=== PATIENT | female | born 1955 | race Caucasian/White ===

== ENCOUNTER 2020-02-02 12:04 | Observation (INO) | payer MEDICARE, OTHER ==
[~2020-02-02] VITALS: Ht 167.6 cm; Wt 98.0 kg
[2020-02-02 12:30] LABS: BASOPHILS ABSOLUTE AUTO 0.03 K/mm3 (0.00-0.23); BASOPHILS PERCENT AUTO 1 % (0-2); EOSINOPHILS ABSOLUTE AUTO 0.09 K/mm3 (0.00-0.68); EOSINOPHILS PERCENT AUTO 2 % (0-6); Hemoglobin 12.4 g/dL (11.5-16.0); IMMATURE GRAN ABSOLUTE AUTO 0.01 K/mm3 (0.00-0.10); IMMATURE GRAN PERCENT AUTO 0 % (0-1); LYMPHOCYTES ABSOLUTE AUTO 0.97 K/mm3 (0.84-5.20); LYMPHOCYTES PERCENT AUTO 16 % (21-46); MONOCYTES ABSOLUTE AUTO 0.41 K/mm3 (0.16-1.47); MONOCYTES PERCENT AUTO 7 % (4-13); Mean Corpuscular HGB 30.4 pg (26.0-34.0); Mean Corpuscular HGB Conc 33.5 g/dL (31.5-36.5); Mean Corpuscular Volume 91 fL (80-100); Mean Platelet Volume 9.6 fL (9.1-12.4); NEUTROPHILS ABSOLUTE AUTO 4.59 K/mm3 (1.96-9.15); NEUTROPHILS PERCENT AUTO 75 % (41-73); Platelet Count 269 K/mm3 (150-400); RDW Coefficient Variation 15.2 % (11.7-14.2); RDW Standard Deviation 50.2 fL (35.1-46.3); Red Blood Cell Count 4.08 M/mm3 (3.80-5.20)
[2020-02-02 12:56] LABS: Alanine Aminotransfer (ALT/SGP 35 U/L (12-78); Albumin, Blood 3.3 g/dL (3.4-5.0); Albumin/Globulin Ratio 0.8 (0.8-1.8); Alk Phos 100 U/L (50-136); Anion Gap 6 mmol/L (6-16); Aspartate Aminotrans (AST/SGOT 23 U/L (12-37); Bilirubin, Total 0.4 mg/dL (0.1-1.0); Blood Urea Nitrogen 14 mg/dL (8-24); CO2, Blood 26 mmol/L (21-32); Calcium, Blood 9.1 mg/dL (8.5-10.1); Chloride, Blood 109 mmol/L (98-108); Creatinine, Blood 0.48 mg/dL (0.40-1.00); Globulin, Blood 3.9 g/dL (2.2-4.0); Glomerular Filtration Rate >60 (60-); Glucose, Blood 102 mg/dL (70-99); Potassium, Blood 3.9 mmol/L (3.5-5.5); Sodium, Blood 141 mmol/L (136-145); Total Protein, Blood 7.2 g/dL (6.4-8.2); Troponin I <0.015 ng/mL (0.000-0.040)
[2020-02-02] MEDS ORDERED: BUPRENORPHINE HC8 MG SL (14:08)
[2020-02-02] MEDS ORDERED: Atarax10 MG PO (14:09)
[2020-02-02] MEDS ORDERED: PREGABALIN100 MG PO (14:09)
[2020-02-02] MEDS ORDERED: EUTHYROX137 MC1 PO (14:09)
[2020-02-02] MEDS ORDERED: CYCL10 PO (14:09)
[2020-02-02] MEDS ORDERED: HYDHCL25 PO (15:11)
[2020-02-02] MEDS ORDERED: ZOLOFT100 M2 PO (15:12)
[2020-02-02] MEDS ORDERED: PRINIVIL10 MG PO (15:12)
[2020-02-02] MEDS ORDERED: ATOR20 PO (15:13)
[2020-02-02] MEDS ORDERED: HYDCHL12.5 PO (15:13)
[2020-02-02] MEDS ORDERED: ALLEGRA ALLERG180 MG PO (15:14)
[2020-02-02] MEDS ORDERED: PRENATAL TABLE1 EAC2 PO (15:14)
[2020-02-02] MEDS ORDERED: POTA10T PO (15:15)
[2020-02-02] MEDS ORDERED: CYAN500 PO (15:15)
--- NOTE | 2020-02-02 17:06 | NUR ---
Telephone report received from Sunil in ED. Anticipate arrival of pt to ICU 16 shortly.
--- NOTE | 2020-02-02 18:51 | NUR ---
Pt arrived from ED, stood and transferred independently to the bed. Sat on side of bed for several minutes due to pain in back and neck, which she describes as chronic and severe. Also c/o nausea which has been the worst problem she said for the past 2 days. GI cocktail given, followed by a cup of tea which she said helped. Normal sinus rhythm noted on monitor. Respirations even and unlabored. Lung sounds clear. Right breast removal last year, scar well healed. Pt states often has swelling of her right arm due to lymph node removal. Blood pressure noted high upon arrival, after some resolution of nausea and pain it was decreased to what she described as normal for her, 140s/80s. Assisted to the commode and she was able to void. has gone home to get her CPAP machine.
--- NOTE | 2020-02-02 19:38 | NUR ---
CARE ASSUMPTION PT A&O X4. VSS. MONITOR SHOWS NSR, HR 60's. SPO2 > 92% ON RA. PT REPORTS 3/10 CHEST/BACK/NECK PAIN. PT REPORTS PAIN & PREVIOUS NAUSEA "EASED AFTER GI COCKTAIL." WILL CONTINUE TO MONITOR & PROVIDE CARE.
--- NOTE | 2020-02-03 01:02 | NUR ---
PAIN / CALL TO MD HOU IN NEAR TEARS REPORTING INABILITY TO SLEEP D/T INTOLERABLE PAIN. PT REPORTS NECK & BACK PAIN W/ PT REPORT OF "IT FEELS LIKE MY NECK IS TRYING TO LOCK UP." PT REPORTS STIFFNESS W/ TURNING HEAD SIDE TO SIDE, ESPECIALLY TO THE LEFT. PT REPORTS THIS PAIN TO BE CHRONIC & BECOMING HARDER TO DEAL W/ AT HOME. PT REPORTS "I'VE BEEN GETTING TO THE POINT WHERE I JUST CAN'T EVEN MOVE." CALL TO MD LEMONS TO REPORT PT PAIN UNMANAGED W/ CURRENTLY ORDERED MEDICATION. PT REPORTS RECIEVING IV DILAUDID IN ER W/ SOME RELIEF. MD LEMONS W/ NEW ORDER FOR 0.5-1 MG IV DILAUDID Q3P. WILL CONTINUE TO MONITOR & PROVIDE CARE.
--- NOTE | 2020-02-03 04:49 | NUR ---
BIGEMINAL PVC's PT W/ BRIEF RUNS OF BIGEMINAL PVC's. 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
--- NOTE | 2020-02-03 07:30 | NUR ---
ASSUMED CARE: PT RESTING IN BED WITH HEATING PAD BENEATH HER. DENIES CHEST PAIN BUT STATES PAIN IN BACK AND NECK. NSR ON TELE WITH [facility]CS NOTED. AT BEDSIDE. PT STATES GI COCKTAIL AND A CUP OF TEA HELPED WITH PAIN AND NAUSEA YESTERDAY. DENIES ANY TODAY. WILL MEDICATE ABLE.
--- NOTE | 2020-02-03 11:23 | NUR ---
PT IS TEARFUL, C/O CHRONIC BACK PAIN. STATES IT HAS BEEN GETTING WORSE AND WORSE AT HOME. STATES IV DILAUDID DOES NOT HELP. CALL TO DR CALVILLO TO ADDRESS THIS. STATED HE WOULD BE IN ICU SHORTLY
--- NOTE | 2020-02-03 12:00 | NUR ---
DISCUSSED PT'S CHRONIC PAIN WITH DR CALVILLO. NEW ORDERS FOR MEDS. CHANGED TO SURGICAL STATUS. NO FURTHER NEEDS OR CONCERNS.
--- NOTE | 2020-02-03 18:22 | NUR ---
PT AWOKE FROM [facility] THIS AFTERNOON AND ASKED FOR 2 NORCO INSTEAD OF 1 DUE TO THE FIRST ONE ONLY LASTING 2.5 HOURS. 2 PROVIDED. PT STATED HER PAIN IN HER NECK IS 5/10 NOW AND ICE HELPED. CALL TO KAYE HOOD TO GIVE REPORT FOR TRANSFER TO MEDICAL FLOOR. PT'S AWARE OF NEW ROOM NUMBER. PT TRANSFERRED TO [facility] VIA WHEEL CHAIR.
--- NOTE | 2020-02-03 18:37 | NUR ---
REPORT RECIEVED. PT ARRIVE TO APPROX 182. ORIENTED TO /CALL SYSTEM. FLUIDS PROVIDED. SHE STATE ADEQUATE BACK/NECK PAIN RELIEF @ THIS TIME. NO CHEST PAIN, SOB OR N/T. PLEASANT AFFECT, @ BEDSIDE.
--- NOTE | 2020-02-03 21:37 | NUR ---
1945 64 Y/O OBESE FEMALE RESTING COMFORTABLY IN BED WITH SPOUSE WHOM IS AT SIDE AND VERY SUPPORTIVE; PT NOTED TO BE FREQUENTLY ITCHING ARMS, ATARAX 25MG PO GIVEN; PT VOICED SHE HAD SKIN ISSUES FOR LONG TIME; VOICED ALSO LAST CHEMOTHERAPY WAS TWO WEEKS AGO AND THAT ONE THERAPY SESSION IS SCHEDULED AT THIS TIME; NO BP LEFT ARM WITH NOTE LEFT ON WHITE BOARD.
--- NOTE | 2020-02-04 02:54 | NUR ---
SHIFT SUMMARY: 64 Y/O FEMALE RESTED COMFORTABLY ALL SHIFT; PT HAS CHRONIC BACK/NECK PAIN WITH MEDS GIVEN PER EMAR; DENIES NAUSEA OR CHEST PAIN; ALERT AND ORIENTED X 4; BED LOW POSITION WITH CALL LIGHT AT SIDE.
[2020-02-04] MEDS ORDERED: SUCR1 PO (13:51)
[2020-02-04] MEDS ORDERED: OMEP20ER PO (13:52)
--- NOTE | 2020-02-04 16:02 | NUR ---
PT DISCHARGED AT 1440 AOX4. PT TREATED FOR PAIN PER EMAR. PT STANBY TO RESTROOM. CALLED APPROPRIATEY AND WAS PLEASANT WITH CARE. ALL PAPER WORK WAS REVIEWED AND EDUCATIONAL MATERIAL SENT WITH PT. PT WHEELCHAIRED DOWN TO S ENTRANCE BY THIS INTERVENTION TEACHER. NO DISTRESS NOTED.
== END 2020-02-04 14:26 | disposition home or self-care (01) ==
LOC: ER 12:04 → ERHOLD 12:05 → ICUW 17:19 → MEDS 02-03 18:18
PROVIDERS: Emergency Medicine; ADMIT Internal Medicine Endocrinology, Diabetes & Metabolism
DX: R07.89 Other chest pain (principal); K29.00 Acute gastritis without bleeding; I10 Essential (primary) hypertension; I07.1 Rheumatic tricuspid insufficiency; E78.00 Pure hypercholesterolemia, unspecified; E89.0 Postprocedural hypothyroidism; G47.33 Obstructive sleep apnea (adult) (pediatric); G89.4 Chronic pain syndrome; M54.5 Low back pain; J31.0 Chronic rhinitis; L29.9 Pruritus, unspecified; T50.905A Adverse effect of unspecified drugs, medicaments and biological substances, initial encounter; M79.7 Fibromyalgia; E66.9 Obesity, unspecified; Z68.36 Body mass index [BMI] 36.0-36.9, adult; Z92.21 Personal history of antineoplastic chemotherapy; Z85.850 Personal history of malignant neoplasm of thyroid; Z85.3 Personal history of malignant neoplasm of breast; Z79.899 Other long term (current) drug therapy; Z23 Encounter for immunization; Z90.11 Acquired absence of right breast and nipple; Z88.1 Allergy status to other antibiotic agents; Z88.5 Allergy status to narcotic agent; Z88.8 Allergy status to other drugs, medicaments and biological substances
CPT/HCPCS: 36415; 71045; 71260; 80053; 83690; 84484; 85025; 93005; 93010; 96372; 96374-59; 96375-59; 96376; 99285-25; A9270-GY; C9113; G0008; G0378; J1170; J1650; J2405; Q2038; Q9967

== ENCOUNTER 2020-10-02 07:24 | Day surgery (SDC) | payer MEDICARE, OTHER ==
[~2020-10-02] VITALS: Ht 167.6 cm; Wt 100.0 kg
[~2020-10-02 07:24] MED LIST: ALLEGRA ALLERG180 MG PO; ATOR20 PO; Atarax10 MG PO; BUPRENORPHINE HC8 MG SL; CYAN500 PO; CYCL10 PO; EUTHYROX137 MC1 PO; HYDCHL12.5 PO; HYDHCL25 PO; OMEP20ER PO; POTA10T PO; PREGABALIN100 MG PO; PRENATAL TABLE1 EAC2 PO; PRINIVIL10 MG PO; SUCR1 PO; ZOLOFT100 M2 PO
[2020-10-02] MEDS ORDERED: MAGNESIUM CITR125 MG PO (07:49)
--- NOTE | 2020-10-02 08:10 | NUR ---
Ambulatory in Day Surgery History, Chart, Medications and Allergies reviewed before start of procedure. Lungs clear T/O to Auscultation. Pre-Op teaching done. Pt verbalizes understanding.
--- NOTE | 2020-10-02 12:00 | NUR ---
Patient up to Ambulate independently. Gait steady. Discharge instructions reviewed with patient. Patient verbalizes understanding. Copy given to patient to take home. Discharged via wheelchair to private car for ride home.
== END 2020-10-02 23:29 | disposition home or self-care (01) ==
LOC: ORSCMMR 07:24 → ORD 09:00 → ORSCMMR 09:00
PROVIDERS: Surgery
PROC: 0JPT0WZ Removal of Totally Implantable Vascular Access Device from Trunk Subcutaneous Tissue and Fascia, Open Approach (ICD-10-PCS; principal; 2020-10-02 09:00)
DX: Z85.3 Personal history of malignant neoplasm of breast (principal); Z85.850 Personal history of malignant neoplasm of thyroid; I10 Essential (primary) hypertension; E03.9 Hypothyroidism, unspecified; Z87.891 Personal history of nicotine dependence; Z45.2 Encounter for adjustment and management of vascular access device
CPT/HCPCS: A9270; J0690; J1100; J2250; J2405; J2704; J3010; J7120

== ENCOUNTER → 2021-04-04 | Outpatient (CLI) | payer MEDICARE, OTHER ==
[~2021-04-04] MED LIST changes: +MAGNESIUM CITR125 MG PO
== END ==
LOC: LAB SHORT 13:56
DX: N95.0 Postmenopausal bleeding (principal)
CPT/HCPCS: 88305

== ENCOUNTER → 2021-04-17 | Outpatient (CLI) | payer MEDICARE, OTHER ==
[2021-04-17 20:39] LABS: Campylobacter Sp Not Detected (NOT DETECT)
[2021-04-17 20:40] LABS: Adenovirus F 40/41 Not Detected (NOT DETECT); Astrovirus Not Detected (NOT DETECT); Cryptosporidium Not Detected (NOT DETECT); Cyclospora Cayetanensis Not Detected (NOT DETECT); E. Coli O157 Not Detected (NOT DETECT); Entamoeba Histolytica Not Detected (NOT DETECT); Enteroaggregative E. coli-EAEC Not Detected (NOT DETECT); Enteropathogenic E. coli-EPEC Not Detected (NOT DETECT); Enterotoxigenic E. coli-ETEC Not Detected (NOT DETECT); Giardia Lamblia Not Detected (NOT DETECT); Norovirus GI/GII Not Detected (NOT DETECT); Plesiomonas Shigelloides Not Detected (NOT DETECT); Rotavirus A Not Detected (NOT DETECT); Salmonella Sp Not Detected (NOT DETECT); Sapovirus Not Detected (NOT DETECT); Shiga Toxin-prod E. coli-STEC Not Detected (NOT DETECT); Shigella/Enteroin E. coli-EIEC Not Detected (NOT DETECT); Vibrio Cholerae Not Detected (NOT DETECT); Vibrio Sp Not Detected (NOT DETECT); Yersinia Enterocolitica Not Detected (NOT DETECT)
== END | disposition home or self-care (01) ==
LOC: LAB SHORT 16:29
PROVIDERS: Physician Assistant Medical
DX: R19.7 Diarrhea, unspecified (principal)
CPT/HCPCS: 0097U

== ENCOUNTER → 2022-11-04 | Outpatient (CLI) | payer MEDICARE, OTHER ==
[2022-11-05 14:09] LABS: HPV 16 Negative (Negative); HPV 18 Negative (Negative); HPV OTHER HR TYPES Negative (Negative)
== END ==
LOC: LAB 10:11 → LAB SHORT 10:11
PROVIDERS: Family Medicine
DX: Z01.419 Encounter for gynecological examination (general) (routine) without abnormal findings (principal)
CPT/HCPCS: 87624; G0145

== ENCOUNTER 2023-10-13 09:45 | Emergency (ER) | payer MEDICARE, OTHER ==
[~2023-10-13] VITALS: Ht 167.6 cm; Wt 101.6 kg
[2023-10-13] MEDS ORDERED: Cyclobenzaprine HCl 10 MG Tab PO ONE (10:15)
[2023-10-13] MEDS ORDERED: Lidocaine 4% 1 Patch TOP ONE (10:15)
[2023-10-13] MEDS ORDERED: FentaNYL Citrate 50 MCG/ML 2 ML Injection IV ONE (12:25)
[2023-10-13] MEDS ORDERED: Ketorolac Tromethamine 30mg Vial IV ONE (12:25)
[2023-10-13] MEDS ORDERED: OxyCODONE HCL 5 MG TAB PO ONE (12:30)
[2023-10-13] MEDS ORDERED: Ketorolac Tromethamine 10 MG Tab PO ONE (12:30)
[2023-10-13] MEDS ORDERED: LIDO700A20 TOP (12:46)
[2023-10-13 13:07] VITALS: BP 130/84
== END 2023-10-13 13:10 | disposition home or self-care (01) ==
LOC: ER 09:45
DX: S06.0X1A Concussion with loss of consciousness of 30 minutes or less, initial encounter (principal); M54.2 Cervicalgia; W07.XXXA Fall from chair, initial encounter; I10 Essential (primary) hypertension; E78.5 Hyperlipidemia, unspecified; K21.9 Gastro-esophageal reflux disease without esophagitis; Z88.8 Allergy status to other drugs, medicaments and biological substances; Z88.5 Allergy status to narcotic agent; Z79.899 Other long term (current) drug therapy; Z79.890 Hormone replacement therapy
CPT/HCPCS: 70450; 72125; 99284-25; A9270